=== PATIENT | female | born 1955 | race Hispanic/Latino ===

== ENCOUNTER 2019-02-06 18:37 | Observation (INO) | payer SELFPAY ==
--- NOTE | 2019-02-06 19:25 | CT ---
CT BRAIN 02/06/19 PROVIDED CLINICAL HISTORY: Right sided weakness. FINDINGS: No comparisons. The ventricular system appears normal in size and morphology. There is no evidence for intracranial h emorrhage or mass effect. The extracranial soft tissues and osseous structures demonstrate no acute f indings. IMPRESSION: No evidence for intracranial hemorrhage or mass effect. POS: [facility]
[2019-02-06 19:27] LABS: #Basophils 0.1 thou/uL (0.0-0.2); #Eosinphils 0.1 thou/uL (0.0-0.7); #Lymphocytes 3.3 thou/uL (1.20-3.40); #Monocytes 0.5 thou/uL (0.11-0.59); #Neutrophils 3.8 thou/uL (1.40-6.50); %Basophils 1.2 % (0.0-1.0); %Eosinophils 1.8 % (0.0-10.0); %Lymphocytes 42.3 % (21.0-51.0); %Monocytes 6.3 % (0.0-10.0); %Neutrophils 48.4 % (42.0-75.0); Mean Corpuscular HGB CONC 34.6 g/dL (32.0-36.0); Mean Corpuscular Volume 86.6 fL (78.0-98.0); Mean Platelet Volume 7.8 fL (7.4-10.4); Platelet Count 307 thou/uL (130-400); RBC Distribution Width 11.5 % (11.5-14.5); Red Blood Cell (RBC) Count 4.68 mill/uL (4.20-5.40); White Blood Cell (WBC) Count 7.8 thou/uL (4.8-10.8)
[2019-02-06] MEDS ORDERED: Lorazepam 2 MG/ML VIAL ONE (19:39)
[2019-02-06 19:46] LABS: ALT (SGPT) 29 U/L (8-55); AST (SGOT) 22 U/L (5-34); Acetaminophen Less than 6.0 mcg/mL (10.0-30.0); Albumin 4.4 g/dL (3.4-4.8); Alcohol Less than 10 mg/dL (Less than 10); Alkaline Phosphatase 83 U/L (40-110); Anion Gap 11 mmol/L (10-20); BUN (Urea Nitrogen) 12 mg/dL (9.8-20.1); Bilirubin, Total 0.3 mg/dL (0.2-1.2); CK (CPK) 75 U/L (29-168); Calc. Creatinine Clearance 0 mL/min (70-130); Calcium 9.3 mg/dL (7.8-10.44); Carbon Dioxide 31 mmol/L (23-31); Chloride 102 mmol/L (98-107); Estimated GFR-MDRD 77; Globulin 3.2 g/dL (2.4-3.5); Glucose 91 mg/dL (80-115); Protein, Total 7.6 g/dL (6.0-8.3); Salicylate Less than 8.0 mg/dL (15.0-30.0); Sodium 141 mmol/L (136-145)
[2019-02-06 19:51] LABS: Potassium 2.7 mmol/L (3.5-5.1)
[2019-02-06 20:03] LABS: Bacteria/HPF None Seen HPF (None Seen); Bilirubin Negative (Negative); Blood, Urine Negative (Negative); Clarity Clear (Clear); Glucose, Urine (Dipstick) Normal (Negative); Leukocyte 75 Leu/uL (Negative); Nitrite Negative (Negative); Protein, Urine (Dipstick) Negative (Neg-Trace); RBC/HPF 0-3 HPF (0-3); Squamous Epithelial 0-3 HPF (0-3); Urobilinogen Normal mg/dL (Less than 2); WBC/HPF 0-3 HPF (0-3)
[2019-02-06] MEDS ORDERED: Aspirin Chewable 81 MG TAB ONE (20:06)
[2019-02-06] MEDS ORDERED: Potassium Chloride 20 MEQ TAB ONE ×3 (20:06→22:24)
[2019-02-06 20:11] LABS: Amphetamine Not Detected (NotDetected); Barbiturates Screen Not Detected (NotDetected); Benzodiazepine Screen Not Detected (NotDetected); Cocaine Metabolite Screen Not Detected (NotDetected); Medtox Control Line Valid? VALID (VALID); Medtox Reader # READER 1; Methadone Not Detected (NotDetected); Methamphetamine Not Detected (NotDetected); Opiate Screen Not Detected (NotDetected); Oxycodone Screen Not Detected (NotDetected); Phencyclidine (PCP) Not Detected (NotDetected); THC/Cannabinoid Screen Not Detected (NotDetected); Tricyclic Screen Not Detected (NotDetected)
[2019-02-06] MEDS ORDERED: Potassium Chloride 20 MEQ/100 ML PREMIX BAG ONE (20:14)
[2019-02-06] MEDS ORDERED: Nicotine 14 MG PATCH ONE (22:01)
[2019-02-07] MEDS ORDERED: Zolpidem Tartrate 5 MG TAB PO PRN (00:27)
[2019-02-07] MEDS ORDERED: Acetaminophen 325 MG TAB PO PRN (00:27)
[2019-02-07] MEDS ORDERED: Ondansetron PF 4 MG/2 ML Vial IVP PRN (00:27)
[2019-02-07] MEDS ORDERED: hydrALAZINE 20 MG/ML VIAL SLOW IVP PRN (00:27)
[2019-02-07] MEDS ORDERED: HYDROcodone/Acetaminophen 5/325 mg Tablet PO PRN (00:27)
[2019-02-07] MEDS ORDERED: Morphine 2 MG/ML SYRINGE SLOW IVP PRN (00:31)
[2019-02-07 01:03] VITALS: BMI 26.1
[2019-02-07] MEDS ORDERED: Amlodipine 10 MG TAB PO SCH ×2 (01:15→09:00)
[2019-02-07] MEDS ORDERED: Potassium Phosphate 30 MMOL in Sodium Chloride 0.9% 500 ML IVPB SCH (01:30)
[2019-02-07 01:50] LABS: Anion Gap 9 mmol/L (10-20); BUN (Urea Nitrogen) 13 mg/dL (9.8-20.1); Calc. Creatinine Clearance 78 mL/min (70-130); Calcium 8.9 mg/dL (7.8-10.44); Carbon Dioxide 28 mmol/L (23-31); Chloride 109 mmol/L (98-107); Estimated GFR-MDRD 81; Glucose 128 mg/dL (80-115); Potassium 4.1 mmol/L (3.5-5.1); Sodium 142 mmol/L (136-145)
[2019-02-07] MEDS ORDERED: Nicotine 21 MG PATCH TD SCH (02:00)
[2019-02-07 05:06] LABS: Anion Gap 10 mmol/L (10-20); BUN (Urea Nitrogen) 14 mg/dL (9.8-20.1); Calc. Creatinine Clearance 80 mL/min (70-130); Carbon Dioxide 25 mmol/L (23-31); Cardiac Risk 6.2 (Less than 4.5); Chloride 110 mmol/L (98-107); Cholesterol 246 mg/dl (< 200 Desired); Estimated GFR-MDRD 84; Glucose 103 mg/dL (80-115); HDL Cholesterol 40 mg/dL (>60 Neg Risk); LDL Cholesterol, Calculated 158 mg/dL; Potassium 4.1 mmol/L (3.5-5.1); Sodium 141 mmol/L (136-145); Triglycerides 239 mg/dL (Less than 150)
[2019-02-07 06:38] LABS: Hemoglobin 12.8 g/dL (12.0-16.0); Mean Corpuscular HGB CONC 34.4 g/dL (32.0-36.0); Mean Corpuscular Hemoglobin 29.8 pg (27.0-31.0); Mean Corpuscular Volume 86.8 fL (78.0-98.0); Mean Platelet Volume 8.5 fL (7.4-10.4); Platelet Count 275 thou/uL (130-400); RBC Distribution Width 11.7 % (11.5-14.5); White Blood Cell (WBC) Count 6.9 thou/uL (4.8-10.8)
[2019-02-07 06:40] LABS: Band 1 % (5-11); Eosinophils 3 % (0-10); Lymphocytes 34 % (21-51); MDiff Complete? YES; Monocytes 3 % (0-10); Neutrophil 55 % (42-75); Reactive Lymphocytes 4 % (0-10)
[2019-02-07] MEDS: Bupropion 150 MG SR TAB PO SCH (08:57)
[2019-02-07] MEDS: Enoxaparin Sodium 40 MG/0.4 ML SYRINGE SC SCH (08:58)
[2019-02-07] MEDS: Famotidine 20 MG TAB PO SCH ×2 (08:58→21:26)
[2019-02-07] MEDS: Aspirin 81 mg Enteric Coated Tablet PO SCH (08:58)
[2019-02-07] MEDS: Amlodipine 5 MG TAB PO SCH (08:58)
[2019-02-07] MEDS ORDERED: Lorazepam 0.5 MG TAB PO SCH (10:15)
--- NOTE | 2019-02-07 10:26 | CON ---
DATE OF CONSULTATION: 02/07/2019 CONSULTING PHYSICIAN: Hospitalist Service. IMPRESSION: 1. Transient ischemic attack with transient expressive aphasia and right-sided weakness. 2. Hypertension. PLAN: 1. Aspirin 325 mg daily. 2. Lipitor to address her hyperlipidemia. 3. Carotid ultrasound. HISTORY OF PRESENT ILLNESS: Ms. Youssef is a 63-year-old female, who developed a sudden onset of expressive aphasia and right-sided weakness. She was at work at that time, she was trying to wait on customers and found that she could not speak whatsoever. She is still able to walk, though she was dragging the right leg. She had to pick her right arm up to put it on the desk. She was sitting at the desk when she started to regain her ability to speak. She is uncertain as to the exact duration of the episode, but was clearly less than an hour. There was no associated headache that follows the event. She has never had anything like this in the past. She came in last night for evaluation, her CT of the brain was negative. Her lab work was unremarkable other than a cholesterol ratio of 6.2. PAST MEDICAL HISTORY: Hypertension. ALLERGIES: NONE. SOCIAL HISTORY: No tobacco. FAMILY HISTORY: Noncontributory. REVIEW OF SYSTEMS: Ten-system review of systems is otherwise negative. PHYSICAL EXAMINATION: VITAL SIGNS: Blood pressure 147/80, pulse 63, respirations 16, and temperature 97.4. HEENT: Pupils equal and reactive. Conjunctivae clear. Oropharynx clear. NECK: Supple. No lymphadenopathy. EXTREMITIES: No cyanosis, clubbing, or edema. NEUROLOGIC: She is alert and appropriate. Her speech is fluent and clear. Cranial nerves 2 through 12 are intact. Motor exam showed good strength bilaterally. There was no tremor or dysmetria present. Sensation was intact to touch. She had no abnormal movements. Her gait is independent. LABORATORY AND DIAGNOSTIC DATA: Laboratory studies were reviewed. CT scan of the brain without contrast was reviewed. SUMMARY: This is a 63-year-old woman with hypertension who had transient expressive aphasia and right-sided weakness consistent with a left middle cerebral artery transient ischemic attack. Fortunately, she is back to her baseline. She has been started on aspirin and Crestor. Workup is pending. Job ID: [id number]
--- NOTE | 2019-02-07 10:33 | MRI ---
EXAM: MRI Brain WO Con PROVIDED CLINICAL HISTORY: Right-sided weakness COMPARISON: None FINDINGS: The ventricular system appears normal in size and morphology. There is no evidence for intracranial h emorrhage. There is no evidence for restricted diffusion to suggest recent infarction. No significant intra-axial signal abnormality is evident. The extracranial soft tissues and calvarial ma rrow signal appear normal. There are appropriate flow voids within the major intracranial vessels. IMPRESSION: No evidence for an acute intracranial abnormality.
[2019-02-07] MEDS ORDERED: Nicotine 14 MG PATCH TD SCH (14:00)
--- NOTE | 2019-02-07 19:03 | ULT ---
BILATERAL CAROTID DUPLEX ULTRASOUND: 02/07/19 HISTORY: Right sided weakness. Real time color Doppler evaluation of the right and left carotid system shows plaque formation bilate rally. On the right side, peak systolic velocities of the common carotid were 82 cm/s. Internal carot id velocity of 113 cm/s. External carotid velocity 85 cm/s. On the left side, peak systolic velocities of the common carotid were 98 cm/s. Internal carotid veloc ities 90 cm/s. External carotid velocities 127 cm/s. Vertebral flow is antegrade bilaterally. IMPRESSION: No evidence of hemodynamically significant stenosis of either internal carotid artery by NASCET crite lauren. POS: [facility]
[2019-02-07] MEDS ORDERED: Rosuvastatin 20 MG TAB PO SCH (21:00)
--- NOTE | 2019-02-07 21:41 | PDOC.HOSPP ---
- Subjective Encounter Date: 02/07/19 Encounter Time: 16:00 Subjective: The patient states her right upper and lower extremity weakness has resolved. Previously it felt like a heavy weight. She states she was not taking any of her blood pressure medications and weaned herself off a few years ago. She did have slurred speech during admission which resolved with aspirin given in EMS. Patient is wanting to go home. ECHO results pending - Objective Vital Signs & Weight: Vital Signs (12 hours) Temp Pulse Pulse Pulse Resp BP BP 02/07/19 19:49 98.3 F 66 16 02/07/19 19:30 02/07/19 15:42 98.0 F 57 L 20 02/07/19 11:42 97.6 F 61 20 02/07/19 11:17 62 62 181/85 H 216/111 H 02/07/19 10:40 61 62 160/84 H 185/95 H BP Pulse Ox 02/07/19 19:49 139/72 98 02/07/19 19:30 164/62 H 02/07/19 15:42 152/91 H 96 02/07/19 11:42 167/95 H 99 02/07/19 11:17 02/07/19 10:40 Weight Weight 133 lb 12.8 oz I&O: 02/06/19 02/07/19 02/08/19 06:59 06:59 06:59 Intake Total 600 700 Balance 600 700 Result Diagrams: 02/07/19 04:06 02/07/19 04:06 Additional Labs: Accuchecks 02/07/19 02/07/19 18:48 12:36 POC Glucose 116 H 91 Hospitalist ROS - Review of Systems Constitutional: denies: fever, chills - Medication Medications: Active Medications Generic Name Dose Route Start Last Admin Trade Name Freq PRN Reason Stop Dose Admin Amlodipine Besylate 5 mg 02/07/19 09:00 02/07/19 08:58 Norvasc PO 5 mg DAILY DAVIN Administration Aspirin 81 mg 02/07/19 09:00 02/07/19 08:58 Ecotrin PO 81 mg DAILY DAVIN Administration Bupropion HCl 150 mg 02/07/19 09:00 02/07/19 08:57 Wellbutrin Sr PO 02/10/19 09:00 150 mg DAILY DAVIN Administration Enoxaparin Sodium 40 mg 02/07/19 09:00 02/07/19 08:58 Lovenox SC 40 mg 0900 DAVIN Administration Famotidine 20 mg 02/07/19 09:00 02/07/19 08:58 Pepcid PO 20 mg BID DAVIN Administration Nicotine 14 mg 02/07/19 14:00 02/07/19 14:22 Nicoderm Patch TD 14 mg Q24HR DAVIN Administration - Exam General Appearance: NAD, awake alert Eye: PERRL, anicteric sclera ENT: normocephalic atraumatic, no oropharyngeal lesions Neck: supple, symmetric, no JVD Heart: RRR, no murmur, no gallops, no rubs Respiratory: CTAB, no wheezes, no rales, no ronchi Gastrointestinal: soft, non-tender, non-distended, normal bowel sounds Extremities: no cyanosis, no clubbing, no edema Skin: normal turgor, no lesions, no rashes Neurological: cranial nerve grossly intact, normal sensation to touch, no focal deficits, no new deficit Musculoskeletal: normal tone, normal strength, no muscle wasting Psychiatric: normal affect, normal behavior, A&O x 3 Hosp A/P - Plan This is a 63 year old female with past medical history of hypertension who presented with RUE and RLE weakness. CT head and MRI negative for stroke RUE and RLE weakness/ Slurred speech - likely from TIA - CT head showed no acute disease, MRI brain negative as well. Aspirin 81 mg, atorvastatin - ECHO ordered as well and pending - TSH normal - check HbA1C in morning Hyperlipidemia - start atorvastatin 20 mg qhs - LDL 150, but given that she is active smoker with TIA, would benefit from medication Hypertension - BP increased to 180 while ambulating, however after manual BP check improved to 170 - will continue amlodipine 5 mg, now improved to 130 Tobacco abuse - nicotine patch
[2019-02-07] MEDS ORDERED: Atorvastatin Calcium 40 MG TAB PO SCH (22:00)
[2019-02-08 05:18] LABS: Hemoglobin A1c 5.5 % (4.0-6.0)
[2019-02-08] MEDS: Famotidine 20 MG TAB PO SCH (08:55)
[2019-02-08] MEDS: Amlodipine 5 MG TAB PO SCH (08:55)
[2019-02-08] MEDS: Aspirin 81 mg Enteric Coated Tablet PO SCH (08:55)
[2019-02-08] MEDS: Bupropion 150 MG SR TAB PO SCH (08:55)
[2019-02-08] MEDS: Enoxaparin Sodium 40 MG/0.4 ML SYRINGE SC SCH (08:55)
[2019-02-08 11:47] VITALS: BP 130/66; TEMP 98.1
--- NOTE | 2019-02-08 14:47 | PRG ---
DATE OF SERVICE: 02/08/2019 Ms. Youssef reports she has not had any further episodes of speech difficulty or right-sided weakness. Her carotid ultrasound showed no significant stenosis. Her echocardiogram showed a normal ejection fraction of 55% to 60%. She has been started on aspirin and a statin. She appears to be stable for discharge. She has no focal deficits. I would be happy to follow up with her as an outpatient. Job ID: [id number]
--- NOTE | 2019-02-08 17:55 | DIS ---
DATE OF ADMISSION: 02/06/2019 DATE OF DISCHARGE: 02/08/2019 DISCHARGE DIAGNOSES: Transient ischemic attack, hyperlipidemia, hypertension, tobacco abuse, depression. CONSULTATIONS: Neurology with Dr. Clifford Mancini. PROCEDURES: None. BRIEF HISTORY OF PRESENT ILLNESS: This is a 63-year-old female with a past medical history of hypertension, depression, who presented to the emergency room with right-sided weakness. The patient states she was at work when she started developing right-sided weakness and difficulty walking. She felt that when she lift up her right leg, it was like a heavy weight. The patient also stated her speech was slurred. She believes that everything lasted for about 20 minutes. When she called the ambulance, her deficit had resolved after they had given her aspirin. Upon arrival to the emergency room, she was noted to have a blood pressure of 191/105. EKG showed normal sinus rhythm. She was admitted for further workup of stroke. HOSPITAL COURSE: TIA: The patient had a CT scan of her head which showed no acute disease. She had an MRI scan of her brain, which showed no stroke. Neurology was consulted and recommended carotid Dopplers which showed no significant stenosis. The patient was started on aspirin 81 mg and atorvastatin 40 mg p.o. at bedtime. She underwent an echocardiogram on the , which showed diastolic heart failure with an EF of 55% to 60%, moderate MR with no thrombus. The patient did have blood pressures that were elevated in the 180s to 190s which were exacerbated with walking. She was started on amlodipine 5 mg daily with improvement in her blood pressure. The patient's blood pressure on the day of discharge was 130/66. She is discharged with aspirin, statin, amlodipine, and was advised to follow up with the PCP in a week. The patient states she does not have any PCPs and she was given a list of PCPs to call. Hypertension: The patient had a systolic BP > 191 upon presentation. After starting amlodipine, it continued to be persistently elevated to 170s, however, it was determined that one of the machines in the hospital was not accurate. After having manual blood pressures checked, her blood pressures were controlled in the 130s to 140s. She was discharged on amlodipine. She was advised to follow a 2 L fluid restriction. Tobacco abuse: The patient was discharged with a nicotine patch; however, she states she is not sure if she will actually take it, but wanted the option in case she did. Depression/anxiety: The patient states that she gets panic attacks when she walks into large open spaces. She used to take Valium on a regular basis; however, this is discontinued. She was started on Wellbutrin in the hospital. The patient will be at home with this on discharge, but she needs adequate followup. The patient states that a few years ago when she has to take her Valium, she is to have thoughts of driving off the highway; however, denied any of those thoughts currently. She denied any suicidal or homicidal ideation. She was given outpatient referral to [facility] and was told to make an appointment if she needs. Hypokalemia: Potassium was noted to be 2.7 on admission which improved to 4.1 on the day of discharge. DISCHARGE PHYSICAL EXAMINATION: VITAL SIGNS: Temperature 98.1, heart rate 63, respiratory rate 17, O2 saturation 96% on room air, and blood pressure 130/66. GENERAL: The patient is alert, awake, oriented x3. CVS: Regular rate and rhythm with no murmurs, rubs, or gallops. LUNGS: Clear to auscultation bilaterally. ABDOMEN: Positive bowel sounds, soft, nontender, nondistended. EXTREMITIES: No edema. NEUROLOGIC: The patient's cranial nerves 2 through 12 are intact. She has 5/5 strength in her upper and lower extremities. Sensation is intact in all 4 extremities. Reflexes are 2+ in all 4 extremities. PERTINENT LABORATORY DATA: CBC 02/07: unremarkable. BMP on 02/07: unremarkable except for elevated chloride level. Lipid panel 02/07: Triglyceride 239, total cholesterol 148, LDL 158, HDL 40. TSH: 1.760. Homocystine: Was 7.07. LFTs: AST 22, ALT 29, alkaline phosphatase 83. CK: Was 75. Troponin I: Was 0.015. UA, 02/06: Showed leukocyte esterase 75, urine white blood cells 0 to 3. Toxicology: Was normal. PERTINENT IMAGING: CT Brain: Shows no acute disease. MRI brain 02/07: Shows no acute disease. Carotid Doppler 02/07: There is no significant stenosis. Echocardiogram 02/07: Shows EF of 55% to 60% with diastolic dysfunction. Left atrium is mildly dilated, moderate MR, aortic valve is sclerotic, mild TR. DISCHARGE CONDITION: Stable. DISPOSITION: Home. DIET: Heart healthy diet with 2 L fluid restriction. ACTIVITY: As tolerated. DISCHARGE INSTRUCTIONS: The patient was started on amlodipine and vshould follow up with her PCP in a week for titration of blood pressures. She also has moderate mitral regurgitation and probably needs a repeat echocardiogram in 6 months. She is also started on Wellbutrin for depression and needs outpatient followup with [facility] for depression/anxiety. Job ID: [id number] MTDD
[2019-02-08] MEDS ORDERED: Atorvastatin Calcium 40 MG TAB PO SCH (21:00)
--- NOTE | 2019-02-09 08:03 | HP ---
PRESENTING COMPLAINT: Right-sided numbness and weakness. HISTORY OF PRESENT ILLNESS: Ms. Mikael Clayton is a 63-year-old female with past medical history of hypertension, not on any medication, who developed feeling of out-of-body experience associated with slight dizziness today while at work. The patient has after which, the patient has felt numbness in the right hand as well as weakness in the right lower extremity. She had presented to the ED, at which time weakness has resolved and she was not having twitching. Twitching resolved after she was given Ativan. Her lab work shows a potassium of 2.7. She was also noted to be markedly hypertensive with systolic blood pressure . She was given aspirin and nitroglycerin by EMS. By time of arrival in the ED, her blood pressure was down to the 170 systolic. The patient admits to being aware of high blood pressure. She was initially prescribed medication, but she stopped taking after feeling of weakness when she started the medicine over 2 years ago. She denies any diarrhea, nausea, or vomiting. She denies any ijgt-[id number] medication intake. She admits to drinking over 10 bottles of soft drink daily. She denies any excess urinary frequency or polyuria. PAST MEDICAL HISTORY: Significant for hypertension and anxiety disorder. HOME MEDICATIONS: None. SOCIAL HISTORY: The patient is an active smoker. Smokes about a pack a day. No history of alcohol or illicit drug use. She works as a stock worker and deliverer. FAMILY HISTORY: Significant for hypertension, but no CAD or CVA. REVIEW OF SYSTEMS: All system review x14 were negative except as mentioned above. PHYSICAL EXAMINATION: CURRENT VITAL SIGNS: Blood pressure of 151/76, pulse of 69, respiratory rate of 18, O2 saturation 95% on room air. GENERAL: Overweight, middle-aged female, not in any distress. HEENT: Pupils equal, reactive to light. Extraocular motor movement intact. NECK: No JVD. No carotid bruit. RESPIRATORY: Good air entry. No crepitation. CARDIOVASCULAR: S1 and S2. Rate and rhythm regular. GI: Abdomen is full, soft, nontender. EXTREMITIES: No pedal edema. No calf tenderness. NEUROLOGICAL: The patient is alert, oriented. Cranial nerves 2 through 12 grossly intact. Power is 4/5, symmetrically. No pronator drift. LABORATORY DATA: EKG shows normal sinus rhythm, T-wave inversion in V6 only. QTc of 553. Head CT was negative for any acute intracranial pathology. Urinalysis negative except for leukocytes of 75, but no wbc. Sodium 141, potassium 2.7, creatinine 0.7, magnesium 2.0 post dosage. Troponin I 0.01. TSH 1.7. WBC 7.8, hemoglobin 14. IMPRESSION: 1. Hypertensive emergency with a transient encephalopathy. 2. Hypokalemia with symptoms. 3. Chronic tobacco use. 4. History of anxiety. PLAN: 1. TIA/hypertensive encephalopathy, likely due to uncontrolled high blood pressure. Need to control blood pressure. Discuss again with the patient. We will start the patient on low-dose Norvasc. Monitor for symptoms. We will admit the patient to observation status. Monitor over the next 24 hours. 2. Hypokalemia, likely due to drink induced. Potassium loss in renal tubules. Need to avoid diet intake which may also be contributing to hypertension as well as hypokalemia. Discussed with the patient. We replete aggressively today. Follow repeat in a.m. 3. Tobacco use. Tobacco cessation advised. We do nicotine patch as well as start the patient on bupropion given associated anxiety disorder. 4. DVT prophylaxis, subcutaneous Lovenox. 5. Advance directives, the patient is a full code. Family of patient at bedside as well as the patient discussed with in detail about plan of management. TIME SPENT: Total time spent in evaluation greater than 60 minutes. Job ID: [id number]
[2019-02-09 13:38] LABS: ANA Symphony (Qualitative) Negative (Negative); ANA Symphony (Quantitative) 0.2 Ratio (< 0.7 Negative); dsDNA IgG Antibody Less than 0.5 IU/mL (<10 Negative)
--- NOTE | 2019-02-10 14:33 | EKG ---
Test Reason : TIA Blood Pressure : / mmHG Vent. Rate : 066 BPM Atrial Rate : 066 BPM P-R Int : 162 ms QRS Dur : 090 ms QT Int : 432 ms P-R-T Axes : 081 033 090 degrees QTc Int : 452 ms Normal sinus rhythm Nonspecific T wave abnormality Abnormal ECG Confirmed by ROSENDO WAITE DO ([id number]), film or videotape editor BRITNEY KIM ([id number]) on 02/10/2019 2:33:13 PM Referred By: Confirmed By:ROSENDO WAITE DO
== END 2019-02-08 12:10 | disposition home or self-care (01) ==
LOC: ERS 18:37 → 2SE 21:32
PROVIDERS: ADMIT Internal Medicine; ATTEND Internal Medicine
DX: G45.9 Transient cerebral ischemic attack, unspecified (principal); I16.1 Hypertensive emergency; I10 Essential (primary) hypertension; F17.210 Nicotine dependence, cigarettes, uncomplicated; F41.9 Anxiety disorder, unspecified; E87.6 Hypokalemia; E78.5 Hyperlipidemia, unspecified; F32.9 Major depressive disorder, single episode, unspecified
CPT/HCPCS: 36415; 36416; 70450; 70551; 80048; 80053; 80061; 80306; 80307; 81003; 81015; 82550; 83036; 83090; 83735; 84443; 84484; 85007; 85025; 85027; 86038; 86225; 93005; 93306; 93880; 96372; 96374; G0378; J1650; J2060; J3480

== ENCOUNTER 2020-05-04 11:28 | Outpatient (CLI) | payer OTHER | END 2020-05-04 11:29 | disposition home or self-care (01) | LOC: BICRAD 11:28 | PROVIDERS: ATTEND Nurse Practitioner Family | DX: M25.511 Pain in right shoulder (principal); M19.011 Primary osteoarthritis, right shoulder ==

== ENCOUNTER 2024-12-18 12:26 | Emergency (ER) | payer MEDICARE, SELFPAY ==
[2024-12-18 13:03] LABS: #Basophils 0.04 10x3/uL (0.0-0.2); #Eosinophils 0.07 10x3/uL (0.0-0.7); #Monocytes 0.44 10x3/uL (0.11-0.59); #Neutrophils 4.31 10x3/uL (1.40-6.50); %Basophils 0.6 % (0.0-1.0); %Eosinophils 1.0 % (0.0-10.0); %Lymphocytes 32.5 % (21.0-51.0); %Monocytes 6.1 % (0.0-10.0); %Neutrophils 59.5 % (42.0-75.0); Hematocrit 36.9 % (36.0-47.0); Hemoglobin 11.9 g/dL (12.0-16.0); Mean Corpuscular Hemoglobin 26.3 pg (27.0-31.0); Mean Corpuscular Volume 81.5 fL (78.0-98.0); Platelet Count 319 10x3/uL (130-400); Red Blood Cell (RBC) Count 4.53 mill/uL (4.20-5.40); White Blood Cell (WBC) Count 7.23 10x3/uL (4.8-10.8)
[2024-12-18 13:14] LABS: ALT (SGPT) 121 U/L (Less than 34); AST (SGOT) 100 U/L (11-34); Albumin 4.1 g/dL (3.1-4.5); Alkaline Phosphatase 121 U/L (40-110); Anion Gap 14 mmol/L (10-20); BUN (Urea Nitrogen) 17 mg/dL (9.8-20.1); Bilirubin, Total 0.4 mg/dL (0.3-1.2); Calc. Creatinine Clearance 0 mL/min (70-130); Calcium 9.0 mg/dL (7.8-10.44); Carbon Dioxide 24 mmol/L (23-31); Chloride 107 mmol/L (98-107); Globulin 3.9 g/dL (2.4-3.5); Glucose 223 mg/dL (80-115); Potassium 3.8 mmol/L (3.5-5.1); Sodium 141 mmol/L (136-145)
== END 2024-12-18 19:09 | disposition home or self-care (01) ==
LOC: ERS 12:26
DX: R42 Dizziness and giddiness (principal); I10 Essential (primary) hypertension; R29.700 NIHSS score 0; F17.210 Nicotine dependence, cigarettes, uncomplicated; Z86.73 Personal history of transient ischemic attack (TIA), and cerebral infarction without residual deficits; Z55.6 Problems related to health literacy
CPT/HCPCS: 36416; 70450; 80053; 84484; 85025; 93005